=== PATIENT | male | born 1995 | race Hispanic/Latino ===

== ENCOUNTER 2024-06-11 19:41 | Emergency (ER) | payer SELFPAY ==
--- NOTE | 2024-06-11 20:22 | EDPHYS ---
Physician Documentation [facility] Name: Virgilio Anaya Age: 29 yrs Sex: Male : 1995 Arrival Date: 06/11/2024 Time: 19:41 Bed 16 Private MD: ED Physician Angus Rubin HPI: 06/11 20:23 This 29 yrs old Male presents to ER via Ambulatory with complaints of Low Back ec2 Pain. 20:23 Patient arrives today for left low back pain. Reports that he has a history of left low ec2 back pain, states that this was atraumatic, reports no specific alleviating or assessment factors, states that he did not lift anything abnormal, denies any MVC's, denies any new trauma. Patient reports that he had previously taken cyclobenzaprine with minimal alleviation symptoms. Also taking meloxicam.. Historical: - Allergies: 20:10 No Known Allergies; ha1 - PMHx: 20:10 None; ha1 - Immunization history:: Adult Immunizations up to date. - Infectious Disease History:: Denies. - Social history:: Smoking status: Patient denies any tobacco usage or history of. ROS: 20:23 Constitutional: as per hpi ec2 Exam: 20:23 Constitutional: GEN: NAD Head: atraumatic Eyes: EOMI Ears: External ears are ec2 normal. CV: regular rate LUNGS: no respiratory distress ABD: non-distended SKIN: no evidence of rashes MSK: no evidence of trauma, left paraspinal TTP without deformities or crepitus, no C/T/L spine deformities. Positive left-sided straight leg raise test. Vital Signs: 20:01 BP 109 / 61; Pulse 78; Resp 16; Temp 98.2(T); Pulse Ox 100% on R/A; Weight 102.51 kg; ha1 Height 5 ft. 10 in. ; 20:05 BP 109 / 61; Pulse 78; Resp 16; Temp 98.2(O); Pulse Ox 100% on R/A; rg5 20:01 Body Mass Index 32.43 (102.51 kg, 177.8 cm) ha1 MDM: 19:55 Patient medically screened. ec2 20:23 Data reviewed: vital signs. ED course: Patient arrives today for left low back pain. ec2 Examination remarkable for MSK findings as above. Presentation consistent with sciatica. Lower suspicion for process such as spinal cord injury given lack of red flag symptoms. Additionally low suspicion for bony fracture given lack of trauma. Accordingly we will forego additional testing such as MRI or CT scan. Will discharge home with medications. Return precautions given. Instructed to follow-up PCP. . Administered Medications: 20:30 Drug: Ketorolac IM 30 mg IM once Route: IM; Site: left gluteus; rg5 20:49 Follow up: Response: No adverse reaction; Pain is decreased rg5 20:30 Drug: Lidoderm Topical Patch 5 % (700 mg/patch) 1 patches Topical once; leave on for 12 rg5 hours; cover most painful area; may cut into smaller pieces Route: Topical; Site: affected area; 20:30 Drug: Diazepam PO 5 mg PO once Route: PO; rg5 20:49 Follow up: Response: No adverse reaction rg5 20:30 Drug: Acetaminophen PO 1000 mg PO once Route: PO; rg5 20:49 Follow up: Response: No adverse reaction; Pain is decreased rg5 20:30 Drug: predniSONE PO 40 mg PO once Route: PO; rg5 20:49 Follow up: Response: No adverse reaction rg5 Disposition Summary: 06/11/24 20:21 Discharge Ordered Condition: Stable ec2 Diagnosis - Sciatica, left side ec2 Followup: ec2 - With: Private Physician - When: - Reason: Re-evaluation by your physician Discharge Instructions: - Discharge Summary Sheet ec2 - Sciatica ec2 Forms: - Medication Reconciliation Form ec2 - Antibiotic Education ec2 - Prescription Opioid Use ec2 - Patient Portal Instructions ec2 - Leadership Thank You Letter ec2 Prescriptions: - Zanaflex 4 mg Oral Tablet - take 2 tablets ORAL route every 8 hours As needed; 30 tablet; Refills: 0, ec2 Product Selection Permitted - Prednisone 20 mg Oral Tablet - take 2 tablets ORAL route once daily for 5 days; 10 tablet; Refills: 0, Product ec2 Selection Permitted Signatures: Dianna Cronin RN RN ha1 Angus Rubin MD MD ec2 Chester Mayes RN RN rg5
--- NOTE | 2024-06-11 20:22 | ER ---
Nurse's Notes [facility] Name: Virgilio Anaya Age: 29 yrs Sex: Male : 1995 Arrival Date: 06/11/2024 Time: 19:41 Bed 16 Private MD: Diagnosis: Sciatica, left side Presentation: 06/11 20:01 Chief complaint: Patient states: LOW BACK PAIN THAT IS NOT GETTING BETTER, I GOT ha1 PRESCRIBED PAIN MEDICATION AND MUSCLE RELAXER BUT IT IS NOT HELPING. 20:01 Coronavirus screen: Vaccine status: At this time, the client does not indicate any ha1 symptoms associated with coronavirus-19. Ebola Screen: No symptoms or risks identified at this time. Initial Sepsis Screen: Does the patient meet any 2 criteria? No. Patient's initial sepsis screen is negative. Does the patient have a suspected source of infection? No. Patient's initial sepsis screen is negative. Risk Assessment: Do you want to hurt yourself or someone else? Patient reports no desire to harm self or others. Onset of symptoms was June 11, 2024. 20:01 Method Of Arrival: Ambulatory ha1 20:01 Acuity: ISELA 4 ha1 Triage Assessment: 20:10 General: Appears comfortable, Behavior is calm, cooperative. Pain: Complains of pain in ha1 back Pain does not radiate. Pain currently is 6 out of 10 on a pain scale. Quality of pain is described as heavy, pressure. Neuro: Level of Consciousness is awake, alert, obeys commands, Oriented to person, place, time, situation. Cardiovascular: Patient's skin is warm and dry. Respiratory: Airway is patent Respiratory effort is even, unlabored, Respiratory pattern is regular, symmetrical. GI: No signs and/or symptoms were reported involving the gastrointestinal system. Derm: Skin is pink, warm \T\ dry. Musculoskeletal: Circulation, motion, and sensation intact. Range of motion: intact in all extremities, Reports pain in back. Historical: - Allergies: 20:10 No Known Allergies; ha1 - PMHx: 20:10 None; ha1 - Immunization history:: Adult Immunizations up to date. - Infectious Disease History:: Denies. - Social history:: Smoking status: Patient denies any tobacco usage or history of. Screenin:12 [facility] ED Fall Risk Assessment (Adult) History of falling in the last 3 months, ha1 including since admission No falls in past 3 months (0 pts) Confusion or Disorientation No (0 pts) Intoxicated or Sedated No (0 pts) Impaired Gait No (0 pts) Mobility Assist Device Used No (0 pt) Altered Elimination No (0 pt) Score/Fall Risk Level 0 - 2 = Low Risk Oriented to surroundings, Maintained a safe environment, Educated pt \T\ family on fall prevention, incl call for assistance when getting out of bed, Hourly rounding (assess needs \T\ fall precautionary measures) done. Abuse screen: Denies threats or abuse. Denies injuries from another. Nutritional screening: No deficits noted. Tuberculosis screening: No symptoms or risk factors identified. Assessment: 20:01 Reassessment: SEE TRIAGE ASSESSMENT. 1 Vital Signs: 20:01 BP 109 / 61; Pulse 78; Resp 16; Temp 98.2(T); Pulse Ox 100% on R/A; Weight 102.51 kg; ha1 Height 5 ft. 10 in. ; 20:05 BP 109 / 61; Pulse 78; Resp 16; Temp 98.2(O); Pulse Ox 100% on R/A; rg5 20:01 Body Mass Index 32.43 (102.51 kg, 177.8 cm) ha1 ED Course: 19:46 Patient arrived in ED. gm2 19:46 Angus Rubin MD is Attending Physician. ec2 20:05 Arm band placed on right wrist. rg5 20:05 No provider procedures requiring assistance completed. rg5 20:10 Triage completed. ha1 20:17 Chester Mayes, MELISSA is Primary Nurse. rg5 20:51 Patient has correct armband on for positive identification. rg5 20:51 Provided Education on: POST ER CARE. rg5 20:51 Patient did not have IV access during this emergency room visit. rg5 Administered Medications: 20:30 Drug: Ketorolac IM 30 mg IM once Route: IM; Site: left gluteus; rg5 20:49 Follow up: Response: No adverse reaction; Pain is decreased rg5 20:30 Drug: Lidoderm Topical Patch 5 % (700 mg/patch) 1 patches Topical once; leave on for 12 rg5 hours; cover most painful area; may cut into smaller pieces Route: Topical; Site: affected area; 20:30 Drug: Diazepam PO 5 mg PO once Route: PO; rg5 20:49 Follow up: Response: No adverse reaction rg5 20:30 Drug: Acetaminophen PO 1000 mg PO once Route: PO; rg5 20:49 Follow up: Response: No adverse reaction; Pain is decreased rg5 20:30 Drug: predniSONE PO 40 mg PO once Route: PO; rg5 20:49 Follow up: Response: No adverse reaction rg5 Medication: 20:51 VIS not applicable for this client. rg5 Outcome: 20:21 Discharge ordered by . martha 20:50 Discharged to home ambulatory, rg5 20:50 Condition: stable 20:50 Discharge instructions given to patient, 20:52 Patient left the ED. rg5 Signatures: Dianna Cronin, RN RN ha1 Angus Rubin MD MD ec2 Marion Mena 2 Chester Mayes, MELISSA RN rg5
[2024-06-11] MEDS ORDERED: predniSONE 20 MG TAB ONE (20:27)
[2024-06-11] MEDS ORDERED: ACETAMINOPHEN 500 MG TAB ONE (20:28)
[2024-06-11] MEDS ORDERED: LIDOCAINE 4% PATCH ONE (20:28)
[2024-06-11] MEDS ORDERED: DIAZEPAM 5 MG TABLET ONE (20:28)
[2024-06-11] MEDS ORDERED: KETOROLAC 30 MG/ML INJ ONE (20:28)
[2024-06-11 20:56] VITALS: BP 109/61; TEMP 98.2; O2SAT 100
== END 2024-06-11 20:52 | disposition home or self-care (01) ==
LOC: ER 19:41
DX: M54.32 Sciatica, left side (principal)
CPT/HCPCS: 96372; 99284; J2001; J7512